=== PATIENT | male | born 1965 ===

== ENCOUNTER 2017-08-29 09:52 | Inpatient (IN) ==
[2017-08-29] MEDS ORDERED: NITROGLYCERIN DRIP 50 MG/250 ML BOTTLE IV ONE (09:53)
[2017-08-29] MEDS ORDERED: BIVALIRUDIN IV ONE (09:53)
[2017-08-29] MEDS ORDERED: HYDROmorphone 2 MG/1 ML VIAL IV ONE (09:53)
[2017-08-29] MEDS ORDERED: TICAGRELOR 90 MG TABLET PO ONE (09:53)
[2017-08-29] MEDS ORDERED: MIDAZOLAM 2 MG/2 ML VIAL IV ONE (09:53)
[2017-08-29] MEDS ORDERED: NITROPRUSSIDE 50 MG/2 ML VIAL IV ONE (09:53)
[2017-08-29 10:24] LABS: Basophils % 0.3 % (0.0-0.8); Eosinophils # 0.1 10*3/uL (0.0-0.87); Eosinophils % 2.8 % (0.00-10.9); Hematocrit 26.3 VOL% (42.0-52.0); Hemoglobin 8.4 GM/DL (14.0-18.0); Immature Granulocytes % 0.8 %; Immature Granulocytes Absolute 0.03 #; Lymphocytes # 0.4 10*3/uL (1.4-4.0); Lymphocytes % 12.2 % (21.2-54.2); Mean Corpuscular HGB Conc 31.9 GM/DL (32-36); Mean Corpuscular Hemoglobin 29 PG (27-34); Mean Corpuscular Volume 91.3 FL (87-102); Mean Platelet Volume 11.6 FL (9.6-12.0); Monocytes # 0.1 10*3/uL (0.11-0.8); Monocytes % 1.7 % (1.7-12.7); NRBC # 0.02 10*3/uL; Neutrophils % 82.2 % (38.7-73.9); Platelet Count 85 T/CUMM (130-400); Red Blood Count 2.88 MC/CUMM (3.8-5.5); Red Cell Distribution Width 14.6 % (9.3-17.3); White Blood Count 3.6 T/CUMM (4-12)
[2017-08-29] MEDS ORDERED: ZALEPLON 5 MG CAPSULE PO PRN (10:35)
[2017-08-29] MEDS ORDERED: BISACODYL 5 MG TABLET PO PRN (10:35)
[2017-08-29] MEDS ORDERED: MAGNESIUM SULF RIDER 2 GM in PREMIX 1 EACH IV PRN (10:35)
[2017-08-29] MEDS ORDERED: MAGNESIUM SULF RIDER 4 GM in PREMIX 1 EACH IV PRN (10:35)
[2017-08-29] MEDS ORDERED: ONDANSETRON 4 MG/2 ML VIAL IV PRN (10:35)
[2017-08-29] MEDS ORDERED: ACETAMINOPHEN 325 MG TABLET PO PRN (10:35)
[2017-08-29] MEDS ORDERED: POTASSIUM CHLORIDE 20 MEQ TABLET PO PRN (10:35)
[2017-08-29] MEDS ORDERED: guaiFENesin/DM ER 600-30 MG TABLET PO PRN (10:35)
[2017-08-29 10:44] LABS: Giant Platelets Few; Hypochromasia 1+; Microcytosis Slight; Ovalocytes Slight; Platelet Estimate Decreased
[2017-08-29] MEDS ORDERED: NITROGLYCERIN SL 0.4 MG TABLET SL PRN (11:16)
[2017-08-29] MEDS ORDERED: GLUCAGON 1 MG VIAL IM PRN ×2 (11:16→16:58)
[2017-08-29] MEDS ORDERED: DEXTROSE 50% 25 GM/50 ML VIAL IV PRN ×2 (11:16→16:58)
[2017-08-29] MEDS ORDERED: BIVALIRUDIN 250 MG in SODIUM CHLORIDE 0.9% 50 ML IV SCH (11:30)
[2017-08-29 11:40] LABS: Albumin 3.3 G/DL (3.4-5.0); Calcium 7.8 MG/DL (8.5-10.1); Osmolality,Calculated 299.5 MOS/KG (273-304); Potassium 3.7 MMOL/L (3.5-5.1); Total Protein 6.9 G/DL (6.4-8.3)
[2017-08-29 14:50] LABS: Troponin I Only 0.822 NG/ML (0.00-0.045)
[2017-08-29 20:33] LABS: Troponin I Only 0.818 NG/ML (0.00-0.045)
[2017-08-29] MEDS ORDERED: CARVEDILOL 6.25 MG TABLET PO SCH (21:00)
[2017-08-29] MEDS ORDERED: ROSUVASTATIN 20 MG TABLET PO SCH (21:00)
[2017-08-29] MEDS: INSULIN REGULAR 100 UNIT/ML SUBCUT SCH (21:26)
[2017-08-29] MEDS: TICAGRELOR 90 MG TABLET PO SCH (21:26)
[2017-08-30 05:31] LABS: Basophils % 0.5 % (0.0-0.8); Eosinophils # 0.2 10*3/uL (0.0-0.87); Eosinophils % 3.2 % (0.00-10.9); Hematocrit 26.1 VOL% (42.0-52.0); Hemoglobin 8.2 GM/DL (14.0-18.0); Immature Granulocytes % 0.5 %; Immature Granulocytes Absolute 0.04 #; Lymphocytes # 0.9 10*3/uL (1.4-4.0); Lymphocytes % 11.2 % (21.2-54.2); Mean Corpuscular HGB Conc 31.4 GM/DL (32-36); Mean Corpuscular Hemoglobin 29 PG (27-34); Mean Corpuscular Volume 91.9 FL (87-102); Mean Platelet Volume 11.3 FL (9.6-12.0); Monocytes # 0.7 10*3/uL (0.11-0.8); Monocytes % 9.4 % (1.7-12.7); NRBC # 0.02 10*3/uL; Neutrophils # 5.7 10*3/uL (1.4-7.4); Neutrophils % 75.2 % (38.7-73.9); Platelet Count 85 T/CUMM (130-400); Red Blood Count 2.84 MC/CUMM (3.8-5.5); White Blood Count 7.6 T/CUMM (4-12)
[2017-08-30 05:57] LABS: Band Neutrophils 1 % (0-10); Eosinophils 9 % (0-10); Lymphocytes 6 % (20-55); Platelet Estimate Decreased; Segmented Neutrophils 73 % (50-85); Total Cells Counted 100
[2017-08-30 05:58] LABS: Giant Platelets Few; Hypochromasia 1+; Microcytosis Slight; Ovalocytes Slight
[2017-08-30 06:10] LABS: Magnesium 2.1 MG/DL (1.8-2.4); Osmolality,Calculated 305.5 MOS/KG (273-304)
[2017-08-30 06:14] LABS: Risk Ratio 2.12; VLDL CHOLESTEROL 16.6 MG/DL
[2017-08-30 06:15] LABS: Blood Urea Nitrogen 91 MG/DL (7-18); Calcium 6.8 MG/DL (8.5-10.1); Glucose 102 MG/DL (74-106); Osmolality,Calculated 302.7 MOS/KG (273-304); Sodium 138 MMOL/L (136-145)
[2017-08-30 06:17] LABS: Troponin I Only 0.865 NG/ML (0.00-0.045)
[2017-08-30] MEDS: INSULIN REGULAR 100 UNIT/ML SUBCUT SCH ×4 (08:14→20:42)
[2017-08-30] MEDS: ISOSORBIDE DINITRATE 20 MG TABLET PO SCH ×2 (08:27→20:40)
[2017-08-30] MEDS: TICAGRELOR 90 MG TABLET PO SCH ×2 (08:27→20:41)
[2017-08-30] MEDS: PANTOPRAZOLE 40 MG TABLET PO SCH (08:27)
[2017-08-30] MEDS: CARVEDILOL 25 MG TABLET PO SCH ×2 (08:28→20:41)
[2017-08-30] MEDS: amLODIPine 10 MG TABLET PO SCH (08:28)
[2017-08-30] MEDS: ASPIRIN EC 81 MG TABLET PO SCH (08:28)
[2017-08-30] MEDS ORDERED: ATORVASTATIN 40 MG TABLET PO SCH (09:00)
[2017-08-30] MEDS ORDERED: HYDROmorphone 2 MG TABLET PO PRN (09:17)
[2017-08-30] MEDS ORDERED: ACETAMINOPHEN 325 MG TABLET PO PRN (09:17)
[2017-08-30] MEDS ORDERED: ONDANSETRON ODT 4 MG TABLET PO PRN (09:17)
[2017-08-30] MEDS: CALCIUM ACETATE 667 MG CAPSULE PO SCH ×2 (11:50→17:07)
[2017-08-30 12:56] LABS: Hepatitis B Surface Ag Quant 0.53 Index; Hepatitis B Surface Ag Result Negative (Negative)
[2017-08-30] MEDS ORDERED: HEPARIN 10,000 UNIT/10 ML VIAL IV SCH (15:00)
[2017-08-30] MEDS: ATORVASTATIN 40 MG TABLET PO SCH (20:41)
[2017-08-31 04:49] LABS: Basophils % 0.3 % (0.0-0.8); Eosinophils # 0.2 10*3/uL (0.0-0.87); Eosinophils % 3.3 % (0.00-10.9); Hematocrit 24.4 VOL% (42.0-52.0); Hemoglobin 7.7 GM/DL (14.0-18.0); Immature Granulocytes % 0.8 %; Immature Granulocytes Absolute 0.05 #; Lymphocytes # 0.9 10*3/uL (1.4-4.0); Lymphocytes % 14.8 % (21.2-54.2); Mean Corpuscular HGB Conc 31.6 GM/DL (32-36); Mean Corpuscular Hemoglobin 29 PG (27-34); Mean Platelet Volume 11.4 FL (9.6-12.0); Monocytes # 0.9 10*3/uL (0.11-0.8); Monocytes % 14.3 % (1.7-12.7); Neutrophils # 4.1 10*3/uL (1.4-7.4); Neutrophils % 66.5 % (38.7-73.9); Platelet Count 75 T/CUMM (130-400); Red Blood Count 2.68 MC/CUMM (3.8-5.5); Red Cell Distribution Width 15.1 % (9.3-17.3); White Blood Count 6.1 T/CUMM (4-12)
[2017-08-31 05:11] LABS: Giant Platelets Few; Hypochromasia 1+; Microcytosis Slight; Ovalocytes Slight; Platelet Estimate Decreased
[2017-08-31 05:31] LABS: Calcium 7.3 MG/DL (8.5-10.1); Magnesium 2.1 MG/DL (1.8-2.4); Osmolality,Calculated 292.5 MOS/KG (273-304); Potassium 4.2 MMOL/L (3.5-5.1)
[2017-08-31] MEDS: INSULIN REGULAR 100 UNIT/ML SUBCUT SCH ×4 (07:57→21:50)
[2017-08-31] MEDS: ISOSORBIDE DINITRATE 20 MG TABLET PO SCH ×2 (10:04→21:45)
[2017-08-31] MEDS: amLODIPine 10 MG TABLET PO SCH (10:04)
[2017-08-31] MEDS: CALCIUM ACETATE 667 MG CAPSULE PO SCH ×3 (10:05→17:12)
[2017-08-31] MEDS: CARVEDILOL 25 MG TABLET PO SCH ×2 (10:05→21:46)
[2017-08-31] MEDS: PANTOPRAZOLE 40 MG TABLET PO SCH (10:05)
[2017-08-31] MEDS: TICAGRELOR 90 MG TABLET PO SCH ×2 (10:05→21:46)
[2017-08-31] MEDS: cloNIDine 0.1 MG TABLET PO SCH ×2 (10:05→21:46)
[2017-08-31] MEDS: ASPIRIN EC 81 MG TABLET PO SCH (10:05)
[2017-08-31] MEDS ORDERED: SODIUM CHLORIDE 0.9% 1,000 ML IV PRN (14:53)
[2017-08-31] MEDS: ATORVASTATIN 40 MG TABLET PO SCH (21:45)
[2017-09-01 05:10] LABS: Basophils % 0.4 % (0.0-0.8); Eosinophils # 0.2 10*3/uL (0.0-0.87); Eosinophils % 4.4 % (0.00-10.9); Hematocrit 23.3 VOL% (42.0-52.0); Hemoglobin 7.6 GM/DL (14.0-18.0); Immature Granulocytes % 0.8 %; Immature Granulocytes Absolute 0.04 #; Lymphocytes # 0.9 10*3/uL (1.4-4.0); Lymphocytes % 18.9 % (21.2-54.2); Mean Corpuscular HGB Conc 32.6 GM/DL (32-36); Mean Corpuscular Hemoglobin 29 PG (27-34); Mean Corpuscular Volume 88.6 FL (87-102); Mean Platelet Volume 12.2 FL (9.6-12.0); Monocytes # 0.7 10*3/uL (0.11-0.8); Monocytes % 15.3 % (1.7-12.7); NRBC # 0.02 10*3/uL; Neutrophils # 2.8 10*3/uL (1.4-7.4); Neutrophils % 60.2 % (38.7-73.9); Red Blood Count 2.63 MC/CUMM (3.8-5.5); Red Cell Distribution Width 15.3 % (9.3-17.3); White Blood Count 4.7 T/CUMM (4-12)
[2017-09-01 05:26] LABS: Platelet Count 75 T/CUMM (130-400)
[2017-09-01 05:38] LABS: Calcium 7.3 MG/DL (8.5-10.1); Osmolality,Calculated 300.5 MOS/KG (273-304); Potassium 4.8 MMOL/L (3.5-5.1)
[2017-09-01 06:12] LABS: Hypochromasia 1+; Microcytosis 1+; Ovalocytes Slight; Platelet Estimate Decreased
[2017-09-01] MEDS: CALCIUM ACETATE 667 MG CAPSULE PO SCH ×3 (08:56→17:17)
[2017-09-01] MEDS: INSULIN REGULAR 100 UNIT/ML SUBCUT SCH ×4 (08:56→21:17)
[2017-09-01] MEDS: ISOSORBIDE DINITRATE 20 MG TABLET PO SCH ×2 (12:46→21:17)
[2017-09-01] MEDS: amLODIPine 10 MG TABLET PO SCH (12:46)
[2017-09-01] MEDS: PANTOPRAZOLE 40 MG TABLET PO SCH (12:47)
[2017-09-01] MEDS: TICAGRELOR 90 MG TABLET PO SCH ×2 (12:47→21:16)
[2017-09-01] MEDS: CARVEDILOL 25 MG TABLET PO SCH ×2 (12:47→21:17)
[2017-09-01] MEDS: ASPIRIN EC 81 MG TABLET PO SCH (12:47)
[2017-09-01] MEDS: ATORVASTATIN 40 MG TABLET PO SCH (21:17)
[2017-09-02 04:42] LABS: Basophils % 0.5 % (0.0-0.8); Eosinophils # 0.3 10*3/uL (0.0-0.87); Eosinophils % 4.6 % (0.00-10.9); Hematocrit 30.7 VOL% (42.0-52.0); Immature Granulocytes % 0.4 %; Immature Granulocytes Absolute 0.02 #; Lymphocytes % 17.9 % (21.2-54.2); Mean Corpuscular HGB Conc 32.6 GM/DL (32-36); Mean Corpuscular Hemoglobin 29 PG (27-34); Mean Corpuscular Volume 88.7 FL (87-102); Monocytes # 0.7 10*3/uL (0.11-0.8); Monocytes % 11.9 % (1.7-12.7); Neutrophils # 3.7 10*3/uL (1.4-7.4); Neutrophils % 64.7 % (38.7-73.9); Platelet Count 72 T/CUMM (130-400); Red Blood Count 3.46 MC/CUMM (3.8-5.5); Red Cell Distribution Width 15.3 % (9.3-17.3); White Blood Count 5.7 T/CUMM (4-12)
[2017-09-02 05:05] LABS: Calcium 7.8 MG/DL (8.5-10.1); Magnesium 2.1 MG/DL (1.8-2.4); Osmolality,Calculated 283.7 MOS/KG (273-304); Potassium 4.3 MMOL/L (3.5-5.1)
[2017-09-02 05:42] LABS: Hypochromasia 1+; Microcytosis 1+
[2017-09-02 05:43] LABS: Platelet Estimate Decreased
[2017-09-02] MEDS: INSULIN REGULAR 100 UNIT/ML SUBCUT SCH ×3 (09:02→15:42)
[2017-09-02 09:17] VITALS: BP 151/85
[2017-09-02] MEDS: PANTOPRAZOLE 40 MG TABLET PO SCH (10:17)
[2017-09-02] MEDS: CALCIUM ACETATE 667 MG CAPSULE PO SCH ×2 (10:17→12:49)
[2017-09-02] MEDS: amLODIPine 10 MG TABLET PO SCH (10:18)
[2017-09-02] MEDS: ASPIRIN EC 81 MG TABLET PO SCH (10:18)
[2017-09-02] MEDS: CARVEDILOL 25 MG TABLET PO SCH (10:18)
[2017-09-02] MEDS: ISOSORBIDE DINITRATE 20 MG TABLET PO SCH (10:18)
[2017-09-02] MEDS: TICAGRELOR 90 MG TABLET PO SCH ×2 (10:19→15:41)
== END 2017-09-02 17:00 | disposition home or self-care (01) | DRG 246 ==
LOC: N.CL 09:52 → N.ICU 17:48 → N.TELES 08-30 09:42
PROVIDERS: ADMIT Internal Medicine Cardiovascular Disease; ATTEND Internal Medicine Cardiovascular Disease
PROC: CLCCHCL (ICD-10-PCS; 2017-08-29 10:45)

== ENCOUNTER 2017-11-19 10:26 | Inpatient (IN) ==
[2017-11-19] MEDS ORDERED: NITROGLYCERIN 2% OINT 1 INCH/GM PACK TOP STA (10:51)
[2017-11-19] MEDS ORDERED: MORPHINE 4 MG/1 ML VIAL IV PRN (10:51)
[2017-11-19] MEDS ORDERED: ASPIRIN 325 MG TABLET PO STA (10:51)
[2017-11-19] MEDS ORDERED: NITROGLYCERIN SL 0.4 MG TABLET SL PRN ×2 (10:51→13:36)
[2017-11-19] MEDS ORDERED: ONDANSETRON 4 MG/2 ML VIAL IV PRN ×2 (10:51→13:32)
[2017-11-19] MEDS ORDERED: GENTAMICIN INJ 120 MG in SODIUM CHLORIDE 0.9% 100 ML IV STA (11:02)
[2017-11-19] MEDS ORDERED: VANCOMYCIN INJ 1,000 MG in SODIUM CHLORIDE 0.9% 250 ML IV STA (11:02)
[2017-11-19] MEDS ORDERED: ASPIRIN 325 MG TABLET ONE (11:07)
[2017-11-19] MEDS ORDERED: NITROGLYCERIN 2% OINT 1 INCH/GM PACK TOP ONE (11:07)
[2017-11-19 11:42] LABS: Basophils % 0.1 % (0.0-0.8); Eosinophils # 0.1 10*3/uL (0.0-0.87); Eosinophils % 0.8 % (0.00-10.9); Hematocrit 25.5 VOL% (42.0-52.0); Hemoglobin 8.4 GM/DL (14.0-18.0); Immature Granulocytes % 0.7 %; Immature Granulocytes Absolute 0.05 #; Lymphocytes # 0.3 10*3/uL (1.4-4.0); Lymphocytes % 4.7 % (21.2-54.2); Mean Corpuscular HGB Conc 32.9 GM/DL (32-36); Mean Corpuscular Hemoglobin 30 PG (27-34); Mean Corpuscular Volume 91.4 FL (87-102); Mean Platelet Volume 11.4 FL (9.6-12.0); Monocytes # 0.2 10*3/uL (0.11-0.8); Monocytes % 2.4 % (1.7-12.7); Neutrophils # 6.6 10*3/uL (1.4-7.4); Neutrophils % 91.3 % (38.7-73.9); Platelet Count 103 T/CUMM (130-400); Red Blood Count 2.79 MC/CUMM (3.8-5.5); Red Cell Distribution Width 13.9 % (9.3-17.3); White Blood Count 7.2 T/CUMM (4-12)
[2017-11-19] MEDS ORDERED: VANCOMYCIN 1,000 MG VIAL ONE (11:50)
[2017-11-19 11:52] LABS: INR 1.1; PT Patient Result 11.5 SECS
[2017-11-19 11:53] LABS: Partial Thromboplastin Time 67.6 SECS (0-40)
[2017-11-19 12:05] LABS: Hypochromasia 1+; Lymphocytes 3 % (20-55); Segmented Neutrophils 95 % (50-85); Total Cells Counted 100
[2017-11-19 12:06] LABS: Microcytosis 1+; Platelet Estimate Adequate
[2017-11-19 12:13] LABS: Albumin 3.1 G/DL (3.4-5.0); Bilirubin,Total 0.7 MG/DL (0.2-1.0); Calcium 7.5 MG/DL (8.5-10.1); Osmolality,Calculated 291.8 MOS/KG (273-304); Potassium 3.5 MMOL/L (3.5-5.1); Total Protein 6.9 G/DL (6.4-8.3)
[2017-11-19] MEDS ORDERED: diphenhydrAMINE CAP 25 MG CAPSULE PO PRN (13:32)
[2017-11-19] MEDS ORDERED: DOCUSATE SODIUM 100 MG CAPSULE PO PRN (13:32)
[2017-11-19] MEDS ORDERED: guaiFENesin/DM ER 600-30 MG TABLET PO PRN (13:32)
[2017-11-19] MEDS ORDERED: ACETAMINOPHEN 325 MG TABLET PO PRN (13:32)
[2017-11-19] MEDS ORDERED: DEXTROSE 50% 25 GM/50 ML VIAL IV PRN (13:59)
[2017-11-19] MEDS ORDERED: GLUCAGON 1 MG VIAL IM PRN (13:59)
[2017-11-19] MEDS: PANTOPRAZOLE 40 MG TABLET PO SCH (14:33)
[2017-11-19] MEDS: ASPIRIN EC 81 MG TABLET PO SCH (14:33)
[2017-11-19] MEDS: ISOSORBIDE DINITRATE 20 MG TABLET PO SCH ×2 (14:33→21:33)
[2017-11-19] MEDS: CLOPIDOGREL 75 MG TABLET PO SCH (14:34)
[2017-11-19] MEDS: INSULIN LISPRO 100 UNIT/ML SUBCUT SCH ×2 (18:12→18:14)
[2017-11-19] MEDS: CARVEDILOL 25 MG TABLET PO SCH (18:12)
[2017-11-19] MEDS: CALCIUM ACETATE 667 MG CAPSULE PO SCH (18:12)
[2017-11-19 18:35] LABS: Apearance,Urine Slightly Hazy (Clear); Bilirubin,Urine Negative (Negative); Blood, Urine Negative (Negative); Glucose,Urine (UA) 50 mg/dL (Negative); Ketones,Urine Negative (Negative); Nitrite,Urine Negative (Negative); Protein,Urine >=500 MG/DL; RBC,Urine 3 /HPF (0-4); Sperm,Urine Few /HPF (Negative); Squamous Epithelial Cell,Urine Occasional /HPF (0-10); Urine Color Yellow (Yellow); Urine Specific Gravity 1.014 (1.001-1.035); Urine Urobilinogen < 2.0 EU/DL (0.2-1.0); WBC,Urine 5 /HPF (0-6)
[2017-11-19] MEDS ORDERED: amLODIPine 10 MG TABLET PO SCH (21:00)
[2017-11-19] MEDS: ATORVASTATIN 40 MG TABLET PO SCH (21:32)
[2017-11-20] MEDS: INSULIN LISPRO 100 UNIT/ML SUBCUT SCH ×5 (06:51→15:47)
[2017-11-20 07:10] LABS: Basophils # 0.1 10*3/uL (0.0-0.2); Basophils % 0.7 % (0.0-0.8); Eosinophils # 0.4 10*3/uL (0.0-0.87); Eosinophils % 5.2 % (0.00-10.9); Hematocrit 26.5 VOL% (42.0-52.0); Hemoglobin 8.3 GM/DL (14.0-18.0); Immature Granulocytes % 0.6 %; Immature Granulocytes Absolute 0.04 #; Lymphocytes # 0.9 10*3/uL (1.4-4.0); Lymphocytes % 12.4 % (21.2-54.2); Mean Corpuscular HGB Conc 31.3 GM/DL (32-36); Mean Corpuscular Hemoglobin 29 PG (27-34); Mean Platelet Volume 12.2 FL (9.6-12.0); Monocytes % 13.1 % (1.7-12.7); Neutrophils # 4.9 10*3/uL (1.4-7.4); Red Blood Count 2.82 MC/CUMM (3.8-5.5); Red Cell Distribution Width 13.9 % (9.3-17.3); White Blood Count 7.3 T/CUMM (4-12)
[2017-11-20 07:15] LABS: Platelet Count 97 T/CUMM (130-400)
[2017-11-20 07:29] LABS: Giant Platelets Few; Hypochromasia 1+; Microcytosis 1+; Ovalocytes Slight; Platelet Estimate Decreased
[2017-11-20 07:33] LABS: Albumin 3.1 G/DL (3.4-5.0); Bilirubin,Total 0.8 MG/DL (0.2-1.0); Calcium 7.2 MG/DL (8.5-10.1); Osmolality,Calculated 297.5 MOS/KG (273-304); Potassium 4.3 MMOL/L (3.5-5.1); Risk Ratio 2.41; Total Protein 6.4 G/DL (6.4-8.3)
[2017-11-20] MEDS: CALCIUM ACETATE 667 MG CAPSULE PO SCH ×3 (08:25→17:57)
[2017-11-20] MEDS: PANTOPRAZOLE 40 MG TABLET PO SCH (08:25)
[2017-11-20] MEDS: ASPIRIN EC 81 MG TABLET PO SCH (08:25)
[2017-11-20] MEDS: amLODIPine 10 MG TABLET PO SCH (08:30)
[2017-11-20] MEDS: ISOSORBIDE DINITRATE 20 MG TABLET PO SCH ×3 (08:30→21:38)
[2017-11-20] MEDS: CARVEDILOL 25 MG TABLET PO SCH ×2 (08:30→17:57)
[2017-11-20] MEDS: CLOPIDOGREL 75 MG TABLET PO SCH (08:35)
[2017-11-20] MEDS ORDERED: GENTAMICIN INJ 160 MG in SODIUM CHLORIDE 0.9% 100 ML IV PRN (08:37)
[2017-11-20] MEDS ORDERED: GENTAMICIN INJ 120 MG in SODIUM CHLORIDE 0.9% 100 ML IV ONE (09:30)
[2017-11-20] MEDS ORDERED: LIDOCAINE 1%/EPI INJ 20 ML VIAL ONE (11:04)
[2017-11-20] MEDS ORDERED: HEPARIN 5,000 UNIT/1 ML VIAL ONE (11:04)
[2017-11-20] MEDS: SODIUM CHLORIDE 0.9% 500 ML IV SCH ×2 (11:10→15:53)
[2017-11-20] MEDS ORDERED: PROPOFOL 200 MG/20 ML VIAL IV ONE (12:37)
[2017-11-20] MEDS ORDERED: SEVOFLURANE 1 UNIT/15 MINUTE INH ONE (12:37)
[2017-11-20] MEDS ORDERED: FLUMAZENIL 0.5 MG/5 ML VIAL IV ONE (12:38)
[2017-11-20] MEDS ORDERED: SODIUM CHLORIDE 0.9% 200 ML IV ONE (12:38)
[2017-11-20] MEDS ORDERED: fentaNYL 100 MCG/2 ML VIAL ONE (12:38)
[2017-11-20] MEDS ORDERED: MIDAZOLAM 2 MG/2 ML VIAL ONE (12:38)
[2017-11-20] MEDS ORDERED: GLYCOPYRROLATE 0.4 MG/2 ML VIAL ONE (12:38)
[2017-11-20] MEDS ORDERED: HEPARIN 10,000 UNIT/10 ML VIAL IV SCH (17:00)
[2017-11-20] MEDS: ATORVASTATIN 40 MG TABLET PO SCH (21:37)
[2017-11-21] MEDS ORDERED: HEPARIN 10,000 UNIT/10 ML VIAL IV SCH (07:00)
[2017-11-21] MEDS: INSULIN LISPRO 100 UNIT/ML SUBCUT SCH ×3 (07:39→13:06)
[2017-11-21 07:44] VITALS: BP 162/73
[2017-11-21] MEDS: amLODIPine 10 MG TABLET PO SCH (09:14)
[2017-11-21] MEDS: ASPIRIN EC 81 MG TABLET PO SCH (09:14)
[2017-11-21] MEDS: CLOPIDOGREL 75 MG TABLET PO SCH (09:14)
[2017-11-21] MEDS: CARVEDILOL 25 MG TABLET PO SCH (09:14)
[2017-11-21] MEDS: CALCIUM ACETATE 667 MG CAPSULE PO SCH ×2 (09:14→13:06)
[2017-11-21] MEDS: ISOSORBIDE DINITRATE 20 MG TABLET PO SCH (09:14)
[2017-11-21] MEDS: PANTOPRAZOLE 40 MG TABLET PO SCH (09:14)
[2017-11-21] MEDS ORDERED: GENTAMICIN INJ 160 MG in SODIUM CHLORIDE 0.9% 100 ML IV ONE (12:30)
== END 2017-11-21 14:55 | disposition home or self-care (01) | DRG 314 ==
LOC: EDUNIT# → EDBD → N.ED 10:26 → N.EDINP 10:26 → N.2E 13:52
PROVIDERS: ADMIT Internal Medicine; ATTEND Internal Medicine